=== PATIENT | male | born 1990 ===

== ENCOUNTER 2018-04-26 01:28 | Emergency (ER) | payer SELFPAY ==
[2018-04-26 01:33] VITALS: BP 134/77; PULSE 78; RESP 18; TEMP 36.9; O2SAT 96
--- NOTE | 2018-04-26 01:45 | DI.RAD_ITS ---
SYMPTOM/DIAGNOSIS: TRAUMA, PAIN RIGHT RIBS AND PA CHEST: No priors. Heart size and pulmonary vasculature are within normal limits. The lungs are clear. No rib fracture is identified. IMPRESSION: No acute abnormality.
--- NOTE | 2018-04-26 01:47 | W.ED.GENAD ---
Discharge Plan Disposition Patient Disposition: HOME Condition: Good Discharge Details Chief Complaint: Orthopedic Clinical Impression: Chest wall contusion ED Provider: Eric Trejo and New Rx's Prescriptions: New hydrocodone-acetaminophen 5-325 mg tablet 1 tab PO Q4H PRN (Reason: pain) Qty: 10 RF: 0 Discharge Instructions Instructions: Hydrocodone/Acetaminophen (By mouth) Additional Instructions: There is no evidence of fracture on x-ray, but sometimes rib fractures are missed. Treatment is pain control and deep breathing exercises to prevent pneumonia. Follow-up with your primary care when you return home. Return to ED for worsening pain, difficulty breathing, fever or other concerns. Referrals: Primary Care Provider [Outside] Medical Decision Making Patient with right rib pain status post slip and fall. Spine is cleared clinically. He had no head trauma or loss of consciousness. He has no neurologic symptoms. His lungs are clear and his vital signs are normal. He has no abdominal tenderness. Will obtain chest x-ray with right ribs. Will give Toradol 60 mg IM. Chest x-ray and rib films are negative. Patient reports minimal relief with Toradol. Discussed risk and benefit of narcotics. He has used Vicodin previously and would like at least a few short-term because of the pain. I did review him in the [place] prescription database adding [place] as a state. He had one prescription for Vicodin back in June of this year. [place] information sheet given. Consent signed. One Vicodin given here. Prescription for 10 more to be used over the weekend until he follows up with primary care back home. Return to ED for worsening pain, fever, difficulty breathing, other concerns. HPI General Mode of arrival: ambulatory. Date/Time Provider Initiated Documentation: 04/26/18 01:37. Limitations to Documentation: no limitations. Information obtained by: patient. HPI Narrative: Patient presents to ED with right rib pain status post slip and fall on ice just prior to coming in. He is visiting here from [place]. He went outside slipped on the ice and fell on his right side. He denies striking his head. He denies loss of consciousness. He has no neck or back pain. He has right lateral rib pain. He does not feel short of breath but it hurts to take a breath. Denies any pelvis or lower extremity pain. Has a little bit of right shoulder discomfort. Has no abdominal pain. Presents to ED for evaluation. Related Data Home Medications Medication Instructions Recorded Confirmed hydrocodone-acetaminophen 1 tab PO Q4H PRN #10 tab 04/26/18 Previous Rx's Medication Instructions Recorded hydrocodone-acetaminophen 1 tab PO Q4H PRN #10 tab 04/26/18 Allergies Allergy/AdvReac Type Severity Reaction Status Date / Time No Known Allergies Allergy Unverified 04/26/18 01:39 General Stated Complaint: Orthopedic PAULA: 4 Review of Systems Constitutional Denies headache(s) and Denies weakness ENT Denies dizziness, Denies headache(s), Denies epistaxis, Denies nasal trauma and Denies neck pain Cardiovascular Reports chest pain (right rib pain), Denies syncope and Denies dyspnea Respiratory Reports pain on inspiration, Reports pain with cough and Denies dyspnea Gastrointestinal Denies abdominal pain, Denies nausea and Denies vomiting Musculoskeletal Denies back pain, Denies neck pain, Denies numbness and Denies tingling Integumentary/Breasts Denies wounds Neurologic Denies confusion, Denies dizziness, Denies syncope, Denies headache(s), Denies focal weakness, Denies numbness, Denies tingling, Denies paresthesias and Denies weakness Psychiatric Denies confusion [facility] Social History Smoking/Tobacco Use Status: Former Tobacco Use Social History Smoking/Tobacco Use Status: Former Tobacco Use Exam Const General: cooperative and uncomfortable Orientation: alert and oriented x3 HENMT Head: normocephalic and atraumatic Neck Neck: full ROM, trachea midline and supple Chest Chest: tenderness rib (right lateral ribs) Resp Effort & Inspection: normal respiratory effort Auscultation: clear to auscultation bilaterally Cardio Rate: regular rate Rhythm: regular rhythm Heart Sounds: S1 normal and S2 normal Pulses: radial pulses present GI Palpation: soft, not firm, no guarding and nontender Back/Spine/Pelvis Cervical Spine: cervical ROM normal, No cervical muscular tenderness, No pain with cervical ROM and No cervical spinal tenderness Thoracic/Lumbar Spine: thoracic and lumbar spine normal to inspection, No thoracic spinal tenderness and No lumbar spinal tenderness Skin General skin exam: no ecchymosis Trauma: no lacerations or abrasions Neuro General: alert, oriented x3, gait normal, no focal motor deficits and CN's II-XI intact bilaterally Sensory Exam: no sensory deficits noted Extrem General: normal to inspection, full ROM and normal capillary refill Right upper extremity: shoulder/upper arm Details: normal to inspection and normal ROM; no tenderness Course Vital Signs Temperature 98.4 F 04/26/18 01:33 Pulse 78 04/26/18 01:33 Respiratory Rate 18 04/26/18 01:33 Blood Pressure 134/77 04/26/18 01:33 Pulse Oximetry 96 04/26/18 01:33 Temperature 98.4 F 04/26/18 01:33 Temperature Source Temporal Artery Scan 04/26/18 01:33 Pulse 78 04/26/18 01:33 Respiratory Rate 18 04/26/18 01:33 Respiratory Effort 04/26/18 01:33 Blood Pressure 134/77 04/26/18 01:33 Pulse Oximetry 96 04/26/18 01:33 Oxygen Delivery Method Room Air 04/26/18 01:33 Oxygen Flow Rate 0 04/26/18 01:33 Pain Level 10 04/26/18 01:38
[2018-04-26] MEDS: Ketorolac 60 MG/2 ML VIAL IM (01:54)
--- NOTE | 2018-04-26 01:59 | ED.GENADUL_ITS ---
Discharge Plan Disposition Patient Disposition: HOME Condition: Good Discharge Details Chief Complaint: Orthopedic Clinical Impression: Chest wall contusion ED Provider: Eric Trejo and New Rx's Prescriptions: New hydrocodone-acetaminophen 5-325 mg tablet 1 tab PO Q4H PRN (Reason: pain) Qty: 10 RF: 0 Discharge Instructions Instructions: Hydrocodone/Acetaminophen (By mouth) Additional Instructions: There is no evidence of fracture on x-ray, but sometimes rib fractures are missed. Treatment is pain control and deep breathing exercises to prevent pneumonia. Follow-up with your primary care when you return home. Return to ED for worsening pain, difficulty breathing, fever or other concerns. Referrals: Primary Care Provider [Outside] Medical Decision Making Patient with right rib pain status post slip and fall. Spine is cleared clinically. He had no head trauma or loss of consciousness. He has no neurologic symptoms. His lungs are clear and his vital signs are normal. He has no abdominal tenderness. Will obtain chest x-ray with right ribs. Will give Toradol 60 mg IM. Chest x-ray and rib films are negative. Patient reports minimal relief with Toradol. Discussed risk and benefit of narcotics. He has used Vicodin previously and would like at least a few short-term because of the pain. I did review him in the [place] prescription database adding [place] as a state. He had one prescription for Vicodin back in June of this year. [place] State information sheet given. Consent signed. One Vicodin given here. Prescription for 10 more to be used over the weekend until he follows up with primary care back home. Return to ED for worsening pain, fever, difficulty breathing, other concerns. HPI General Mode of arrival: ambulatory . Date/Time Provider Initiated Documentation: 04/26/18 01:37 . Limitations to Documentation: no limitations . Information obtained by: patient . HPI Narrative: Patient presents to ED with right rib pain status post slip and fall on ice just prior to coming in. He is visiting here from [place]. He went outside slipped on the ice and fell on his right side. He denies striking his head. He denies loss of consciousness. He has no neck or back pain. He has right lateral rib pain. He does not feel short of breath but it hurts to take a breath. Denies any pelvis or lower extremity pain. Has a little bit of right shoulder discomfort. Has no abdominal pain. Presents to ED for evaluation. Related Data Home Medications Medication Instructions Recorded Confirmed hydrocodone-acetaminophen 1 tab PO Q4H PRN #10 tab 04/26/18 Previous Rx's Medication Instructions Recorded hydrocodone-acetaminophen 1 tab PO Q4H PRN #10 tab 04/26/18 Allergies Allergy/AdvReac Type Severity Reaction Status Date / Time No Known Allergies Allergy Unverified 04/26/18 01:39 General Stated Complaint: Orthopedic PAULA: 4 Review of Systems Constitutional Denies headache(s) and Denies weakness ENT Denies dizziness, Denies headache(s), Denies epistaxis, Denies nasal trauma and Denies neck pain Cardiovascular Reports chest pain (right rib pain), Denies syncope and Denies dyspnea Respiratory Reports pain on inspiration, Reports pain with cough and Denies dyspnea Gastrointestinal Denies abdominal pain, Denies nausea and Denies vomiting Musculoskeletal Denies back pain, Denies neck pain, Denies numbness and Denies tingling Integumentary/Breasts Denies wounds Neurologic Denies confusion, Denies dizziness, Denies syncope, Denies headache(s), Denies focal weakness, Denies numbness, Denies tingling, Denies paresthesias and Denies weakness Psychiatric Denies confusion [facility] Social History Smoking/Tobacco Use Status: Former Tobacco Use Social History Smoking/Tobacco Use Status: Former Tobacco Use Exam Const General: cooperative and uncomfortable Orientation: alert and oriented x3 HENMT Head: normocephalic and atraumatic Neck Neck: full ROM, trachea midline and supple Chest Chest: tenderness rib (right lateral ribs) Resp Effort & Inspection: normal respiratory effort Auscultation: clear to auscultation bilaterally Cardio Rate: regular rate Rhythm: regular rhythm Heart Sounds: S1 normal and S2 normal Pulses: radial pulses present GI Palpation: soft, not firm, no guarding and nontender Back/Spine/Pelvis Cervical Spine: cervical ROM normal, No cervical muscular tenderness, No pain with cervical ROM and No cervical spinal tenderness Thoracic/Lumbar Spine: thoracic and lumbar spine normal to inspection, No thoracic spinal tenderness and No lumbar spinal tenderness Skin General skin exam: no ecchymosis Trauma: no lacerations or abrasions Neuro General: alert, oriented x3, gait normal, no focal motor deficits and CN's II- XI intact bilaterally Sensory Exam: no sensory deficits noted Extrem General: normal to inspection, full ROM and normal capillary refill Right upper extremity: shoulder/upper arm Details: normal to inspection and normal ROM; no tenderness Course Vital Signs Temperature 98.4 F 04/26/18 01:33 Pulse 78 04/26/18 01:33 Respiratory Rate 18 04/26/18 01:33 Blood Pressure 134/77 04/26/18 01:33 Pulse Oximetry 96 04/26/18 01:33 Temperature 98.4 F 04/26/18 01:33 Temperature Source Temporal Artery Scan 04/26/18 01:33 Pulse 78 04/26/18 01:33 Respiratory Rate 18 04/26/18 01:33 Respiratory Effort 04/26/18 01:33 Blood Pressure 134/77 04/26/18 01:33 Pulse Oximetry 96 04/26/18 01:33 Oxygen Delivery Method Room Air 04/26/18 01:33 Oxygen Flow Rate 0 04/26/18 01:33 Pain Level 10 04/26/18 01:38
--- NOTE | 2018-04-26 02:54 | DI.VRAD_ITS ---
EXAM: XR Chest, 1 View EXAM DATE/TIME: 04/26/2018 1:47 AM CLINICAL HISTORY: 27 years old, male; Pain and injury or trauma; Fall; Initial encounter; Abrasion; Other: Trauma - fall RT side on ground pain; Injury date: 04/26/18 TECHNIQUE: XR of the chest, 1 view. COMPARISON: No relevant prior studies available. FINDINGS: Lungs: Unremarkable. No consolidation. Pleural space: Unremarkable. No evidence of pneumothorax. Heart/Mediastinum: Unremarkable. Heart size within normal limits for technique. Bones/joints: Unremarkable. No evidence of acute fracture. IMPRESSION: No acute findings. Dictated and Authenticated by: Wilman Villa MD. Ordering:KAREN LEIVA MD
[2018-04-26] MEDS: HYDROcodone 5/Acetaminophen 325 TAB PO (03:08)
== END 2018-04-26 03:12 | disposition home or self-care (01) ==
LOC: ER 03:25
PROVIDERS: Emergency Provider Emergency Medicine
DX: S20.211A Contusion of right front wall of thorax, initial encounter (principal); W00.0XXA Fall on same level due to ice and snow, initial encounter
CPT/HCPCS: 96372; 99284; 71046; 71100; J1885